=== PATIENT | female | born 1990 | race American Indian/Alaskan Native ===

== ENCOUNTER 2017-09-04 07:58 | Emergency (ER) | payer MEDICAID, OTHER ==
[2017-09-04 09:26] VITALS: BP 131/84
[2017-09-04] MEDS ORDERED: NACL 0.9% 1000 ML 1,000 ML IV ONE (10:27)
[2017-09-04] MEDS ORDERED: ZOFRAN IV ONE (10:27)
[2017-09-04] MEDS ORDERED: PEPCID IV ONE (10:27)
[2017-09-04] MEDS ORDERED: BENTYL IM ONE (10:27)
--- NOTE | 2017-09-04 10:28 | Emergency Department Report ---
Blank Doc - Documentation Documentation: Patient is a 26-year-old female who is presenting with nausea vomiting and epigastric discomfort. Patient states that she has a history of gastritis and is having a flareup. Patient states for the last 4 days she's had some off and on nausea however the last 24 hours she's had nausea and vomiting and diarrhea. Patient states she can't keep anything down. Patient denies any dizziness fevers chills cough congestion at this time. Patiently moved to a treatment room for IV fluids and nausea control.
--- NOTE | 2017-09-04 12:10 | Emergency Department Report ---
ED Abdominal Pain HPI - General Chief Complaint: Abdominal Pain Stated Complaint: NAUSEA/VOMITING/ABDOMINAL PAIN Time Seen by Provider: 09/04/17 10:25 Source: patient Mode of arrival: Ambulatory Limitations: No Limitations - History of Present Illness Initial Comments: Patient is a 26-year-old female who is presenting with nausea vomiting and epigastric discomfort. Patient states that she has a history of gastritis and is having a flareup. Patient states for the last 4 days she's had some off and on nausea however the last 24 hours she's had nausea and vomiting and diarrhea. Patient states she can't keep anything down. Patient denies any dizziness fevers chills cough congestion at this time. Patiently moved to a treatment room for IV fluids and nausea control. MD Complaint: abdominal pain (cramping ) Onset/Timin -: days(s) (after eating chicken ) Location: LLQ Radiation: none Migration to: LLQ Severity: moderate Severity scale (0 -10): 5 Quality: cramping Consistency: intermittent Improves With: nothing Worsens With: nothing Context: possible food poisoning Associated Symptoms: nausea, vomiting, diarrhea. denies: fever, chills, constipation, dysuria, hematemesis, hematochezia, melena, hematuria, anorexia, syncope - Related Data LMP (females 10-50): last week Previous Rx's Medication Instructions Recorded Last Taken Type Dicyclomine [Bentyl] 10 mg PO QID #40 capsule 09/04/17 Unknown Rx Ondansetron [Zofran Odt] 4 mg PO TID PRN #20 tab.rapdis 09/04/17 Unknown Rx Allergies Allergy/AdvReac Type Severity Reaction Status Date / Time No Known Allergies Allergy Unverified 09/04/17 11:15 ED Review of Systems ROS: Stated complaint: NAUSEA/VOMITING/ABDOMINAL PAIN Other details as noted in HPI Constitutional: denies: chills, fever Eyes: denies: eye pain, eye discharge, vision change ENT: denies: ear pain, throat pain Respiratory: denies: cough, shortness of breath, wheezing Cardiovascular: denies: chest pain, palpitations Endocrine: no symptoms reported Gastrointestinal: abdominal pain, nausea, vomiting, diarrhea. denies: constipation, hematemesis, melena, hematochezia Genitourinary: denies: urgency, dysuria, frequency, hematuria, discharge, abnormal menses, dyspareunia Musculoskeletal: denies: back pain, joint swelling, arthralgia, myalgia Skin: denies: rash, lesions Neurological: denies: headache, weakness, paresthesias Psychiatric: denies: anxiety, depression Hematological/Lymphatic: denies: easy bleeding, easy bruising ED Past Medical Hx - Medications Home Medications: Home Medications Medication Instructions Recorded Confirmed Last Taken Type Dicyclomine [Bentyl] 10 mg PO QID #40 capsule 09/04/17 Unknown Rx Ondansetron [Zofran Odt] 4 mg PO TID PRN #20 tab.rapdis 09/04/17 Unknown Rx ED Physical Exam - General Limitations: No Limitations General appearance: alert, in no apparent distress - Head Head exam: Present: atraumatic, normocephalic - Eye Eye exam: Present: normal appearance - ENT ENT exam: Present: mucous membranes moist - Neck Neck exam: Present: normal inspection - Respiratory Respiratory exam: Present: normal lung sounds bilaterally. Absent: respiratory distress, wheezes, stridor - Cardiovascular Cardiovascular Exam: Present: regular rate, normal rhythm. Absent: systolic murmur, diastolic murmur, rubs, gallop - GI/Abdominal GI/Abdominal exam: Present: soft, normal bowel sounds. Absent: distended, tenderness, guarding, rebound, rigid, organomegaly, mass, bruit, pulsatile mass , hernia - Rectal Rectal exam: Present: deferred - Extremities Exam Extremities exam: Present: normal inspection - Back Exam Back exam: Present: normal inspection, full ROM. Absent: tenderness, CVA tenderness (R), CVA tenderness (L), muscle spasm, paraspinal tenderness, vertebral tenderness - Neurological Exam Neurological exam: Present: alert, oriented X3 - Psychiatric Psychiatric exam: Present: normal affect, normal mood - Skin Skin exam: Present: warm, dry, intact, normal color. Absent: rash ED Course Vital Signs 09/04/17 09:22 Temperature 98.6 F Pulse Rate 64 Respiratory 16 Rate Blood Pressure 131/84 O2 Sat by Pulse 100 Oximetry ED Medical Decision Making - Lab Data Laboratory Tests 09/04/17 10:53 HCG, Qual Negative - Medical Decision Making Symptoms improved patient tolerated by mouth intake without nausea vomiting diarrhea there is no fever chills all really hCG is negative plan DC Zofran ODT and Bentyl patient will continue to by mouth hydrate and follow PCP and to 3 days ago. Critical care attestation.: If time is entered above; I have spent that time in minutes in the direct care of this critically ill patient, excluding procedure time. ED Disposition Clinical Impression: Nausea and vomiting Qualifiers: Vomiting type: unspecified Vomiting Intractability: non-intractable Qualified Code(s): R11.2 - Nausea with vomiting, unspecified Abdominal pain Qualifiers: Abdominal location: left lower quadrant Qualified Code(s): R10.32 - Left lower quadrant pain Disposition: DC- TO HOME OR SELFCARE Is pt being admited?: No Does the pt Need Aspirin: No Condition: Stable Instructions: Abdominal Pain (ED) Prescriptions: Dicyclomine [Bentyl] 10 mg PO QID #40 capsule Ondansetron [Zofran Odt] 4 mg PO TID PRN #20 tab.rapdis PRN Reason: nausea and vomitng Referrals: PRIMARY CARE,MD [Primary Care Provider] - 3-5 Days Forms: Work/School Release Form(ED) Time of Disposition: 12:16
== END 2017-09-04 12:24 | disposition home or self-care (01) ==
LOC: ED 07:58
DX: R11.2 Nausea with vomiting, unspecified (principal); R10.13 Epigastric pain
CPT/HCPCS: 36415; 84703; 96361; 96374; 96375; 99283; J0500; J2405; J7030